=== PATIENT | male | born 2000 | race African-American/Black ===

== ENCOUNTER 2022-07-04 04:42 | Emergency (ER) | payer MEDICAID, OTHER ==
[~2022-07-04] VITALS: Ht 180.3 cm; Wt 118.0 kg
[2022-07-04 05:15] VITALS: BP 115/75
== END 2022-07-04 08:05 | disposition left against medical advice (07) ==
LOC: ER 04:42
DX: Z53.21 Procedure and treatment not carried out due to patient leaving prior to being seen by health care provider (principal)

== ENCOUNTER 2024-05-26 13:57 | Emergency (ER) | payer MEDICAID ==
[~2024-05-26] VITALS: Ht 180.3 cm; Wt 116.0 kg
[2024-05-26 13:59] VITALS: PULSE 82; RESP 18; O2SAT 100
[2024-05-26 14:10] VITALS: BP 146/90; TEMP 98.5; O2SAT 97
[2024-05-26 14:43] LABS: CHLORIDE 104 mEq/L (98-107); POTASSIUM 3.8 mEq/L (3.5-5.1); SODIUM 139 mEq/L (136-145)
[2024-05-26 14:44] LABS: CARBON DIOXIDE 30 mEq/L (21-32)
[2024-05-26 14:45] LABS: CALCIUM 9.8 mg/dL (8.7-10.4)
[2024-05-26 14:48] LABS: HEMATOCRIT. 47.4 % (42.0-52.0); HEMOGLOBIN. 16.8 g/dL (14.0-18.0); MEAN CORPUSCULAR HEMOGLOBIN 28.3 pg (28.0-32.0); MEAN CORPUSCULAR HGB CONC 35.5 g/dL (31.0-37.0); MEAN CORPUSCULAR VOLUME 79.7 fL (80.0-94.0); MEAN PLATELET VOLUME 7.9 fl (7.4-10.4); PLATELET 288 x1000/uL (130-400); RED BLOOD CELL COUNT 5.95 mill/uL (4.7-6.1); RED CELL DISTRIBUTION WIDTH 13.1 % (11.6-14.6); WHITE BLOOD COUNT 7.5 x1000/uL (4.5-11.0)
[2024-05-26 14:49] LABS: DIFFERENTIAL COMMENT 1; GLUCOSE 90 mg/dL (70-105); UREA NITROGEN BLOOD 10 mg/dL (9-23)
[2024-05-26 14:54] LABS: TROPONIN I HIGH SENSITIVITY < 4 ng/L (3.0-53)
[2024-05-26 16:19] LABS: ALANINE AMINOTRANSFERASE 46 IU/L (10-49)
[2024-05-26 16:20] LABS: ALBUMIN 4.9 g/dL (3.2-4.8); ASPARTATE AMINOTRANSFERASE 23 IU/L (<34); BILIRUBIN DIRECT 0.2 mg/dL (<=3.0); BILIRUBIN TOTAL 0.6 mg/dL (0.1-1.0); PROTEIN TOTAL 7.8 g/dL (6.0-8.3)
[2024-05-27 10:33] LABS: MICROCYTOSIS 1+; PLATELET ESTIMATE NORMAL
== END 2024-05-26 16:54 | disposition home or self-care (01) ==
LOC: ER 13:57
DX: R07.89 Other chest pain (principal); J45.909 Unspecified asthma, uncomplicated
CPT/HCPCS: 36415; 71045; 80048; 80076; 83880; 84484; 85025; 85379; 93005; 99285

== ENCOUNTER 2024-06-15 12:03 | Emergency (ER) | payer MEDICAID ==
[~2024-06-15] VITALS: Ht 182.9 cm; Wt 106.0 kg
[2024-06-15 12:09] VITALS: BP 130/80; PULSE 81; RESP 16; TEMP 98.5; O2SAT 98
== END 2024-06-15 13:00 | disposition left against medical advice (07) ==
LOC: ER 12:03
DX: R42 Dizziness and giddiness (principal); Z53.21 Procedure and treatment not carried out due to patient leaving prior to being seen by health care provider
CPT/HCPCS: 93005